=== PATIENT | male | born 1930 | race Caucasian/White ===

== ENCOUNTER 2016-12-28 12:35 | Emergency (ER) | payer MEDICARE, BC ==
[2016-12-28 12:50] VITALS: BP 174/66
--- NOTE | 2016-12-28 13:28 | EDM.PDOC ---
<Indigo Kelly - Last Filed: 12/28/16 13:34> ED HPI Skin/Rash - General Chief Complaint: Flank Pain Stated Complaint: [id number] PAIN UNDER RIGHT SIDE Time Seen by Provider: 12/28/16 13:23 Source: Reports: Patient History Limitations: Reports: No limitations - History of Present Illness INITIAL COMMENTS - FREE TEXT/NARRATIVE: Patient presents to the ER with c/o pain in the right front rib cage area wrapping around to the back shoulder blade area. He states this began last night. He states his right hip was painful 2 nights ago. Patient states he has never had shingles before, and he was vaccinated for shingles 3 years ago. He denies fall or injury. He denies chest pain or sob. Symptom Onset Date: 12/27/16 Timing: Reports: worse Location, Skin: Reports: chest, abdomen Front/Back Body Image: 1 - Beginning red rash 2 - Beginning red rash Quality: Reports: Burning, Sharp Severity: severe Known Identified Source: no Sick Contact: no Associated Symptoms: Reports: no other symptoms Similar Symptoms Previously: no Recent Medical Care: no - Related Data Allergies Allergy/AdvReac Type Severity Reaction Status Date / Time calcium Allergy unknown Verified 10/12/13 14:55 colesevelam [Colesevelam] Allergy unknown Verified 10/12/13 14:57 procaine HCl [From Novocain] Allergy unknown Verified 10/12/13 14:58 simvastatin Allergy unknown Verified 10/12/13 14:58 Home Meds: Ambulatory Orders Medication Instructions Recorded Confirmed Aspirin [Essie Chewable] 81 mg PO DAILY 05/06/14 12/28/16 Ca Carbonate/Vitamin D3/Vit K 1 tab PO DAILY 05/06/14 12/28/16 [Calcium + D Soft Chewable Tab] Famotidine [Pepcid AC] 20 mg PO DAILY 05/06/14 12/28/16 Finasteride [Finasteride] 5 mg PO BEDTIME 05/06/14 12/28/16 Glucosamine [Glucosamine Sulfate] 500 mg PO DAILY 05/06/14 12/28/16 Metoprolol Succinate [Toprol XL 25 mg PO BID 05/06/14 12/28/16 50mg] Multivitamin [Multivitamins] 1 each PO DAILY 05/06/14 12/28/16 Rosuvastatin Calcium [Crestor] 10 mg PO DAILY 05/06/14 12/28/16 Past Medical History HEENT History: Reports: Hard of hearing Other HEENT History: has reading glasses Cardiovascular History: Reports: [place], Stents Respiratory History: Reports: None Gastrointestinal History: Reports: GERD Musculoskeletal History: Reports: Arthritis Neurological History: Reports: None Psychiatric History: Reports: None Endocrine/Metabolic History: Reports: None Hematologic History: Reports: None Immunologic History: Reports: None Oncologic (Cancer) History: Reports: Renal Dermatologic History: Reports: None - Infectious Disease History Infectious Disease History: Reports: Chicken pox, Measles, Mumps - Past Surgical History Head Surgeries/Procedures: Reports: None Male Surgical History: Reports: Nephrectomy Other Male Surgeries/Procedures: left Social & Family History - Tobacco Use Smoking Status *Q: Never Smoker Second Hand Smoke Exposure: No - Caffeine Use Caffeine Use: Reports: Soda - Alcohol Use Days Per Week of Alcohol Use: 0 - Recreational Drug Use Recreational Drug Use: No - Living Situation & Occupation Living situation: Reports: , with family Occupation: retired ED ROS GENERAL - Review of Systems Review Of Systems: ROS reveals no pertinent complaints other than HPI. ED EXAM, SKIN/RASH Exam: See Below Exam Limited By: No limitations General Appearance: alert, WD/WN, no apparent distress Eye Exam: bilateral eye: normal inspection Ears: normal external exam, normal canal, hearing grossly normal, normal TMs Nose: normal inspection, normal mucosa, no blood Throat/Mouth: Normal inspection, Normal lips, Normal teeth, Normal gums, Normal oropharynx, Normal voice, No airway compromise Head: atraumatic, normocephalic Neck: normal inspection, supple, non-tender, full range of motion Respiratory/Chest: no respiratory distress, lungs clear, normal breath sounds, no accessory muscle use, chest non-tender Cardiovascular: normal peripheral pulses, regular rate, rhythm, no edema, no gallop, no JVD, no murmur, no rub Peripheral Pulses: 2+: radial (L), radial (R) GI/Abdominal: normal bowel sounds, soft, non tender, no organomegaly, no distention, no abnormal bruit, no mass (Male) Exam: Deferred Rectal (Males) Exam: Deferred Back Exam: normal inspection, full range of motion. No: CVA tenderness (L), CVA tenderness (R) Extremities: normal inspection, normal range of motion, non-tender, no pedal edema, normal capillary refill Neurological: alert, oriented, CN II-XII intact, normal cognition, normal gait, normal reflexes, no motor/sensory deficits Psychiatric: normal affect, normal mood Skin: Warm, Dry, Intact, Normal color, Rash (Red non raised rash wrapping from the rib area of the chest around to the back below the shouler blade. ) Location, Skin: chest, back Characteristics: fine, patchy Lymphatic: no adenopathy Course - Vital Signs Last Recorded V/S: Last Vital Signs Temp 36.1 C 12/28/16 12:44 Pulse 74 12/28/16 12:44 Resp 16 12/28/16 12:44 BP 174/66 H 12/28/16 12:44 Pulse Ox 98 12/28/16 12:44 - Orders/Labs/Meds Labs: Laboratory Tests 12/28/16 Range/Units 13:00 Urine Color Yellow (YELLOW) Urine Appearance Slightly cloudy (CLEAR) Urine pH 7.5 (5.0-9.0) Ur Specific [place] 1.020 (1.005-1.030) Urine Protein 30 H (NEGATIVE) Urine Glucose (UA) 500 H (NEGATIVE) Urine Ketones Negative (NEGATIVE) Urine Occult Blood Negative (NEGATIVE) Urine Nitrite Negative (NEGATIVE) Urine Bilirubin Negative (NEGATIVE) Urine Urobilinogen 0.2 (0.2-1.0) mg/dL Ur Leukocyte Esterase Negative (NEGATIVE) Urine RBC 0-5 /HPF Urine WBC Not seen (0-5/HPF) /HPF Ur Epithelial Cells Rare /HPF Amorphous Sediment Moderate (0/HPF) /HPF Urine Bacteria Rare (0-FEW/HPF) /HPF Urine Mucus Few H /LPF Departure - Departure Time of Disposition: 13:30 Disposition: Home, Self-Care 01 Condition: good Clinical Impression: Herpes zoster Qualifiers: Herpes zoster complications: without complications Qualified Code(s): B02.9 - Zoster without complications Instructions: Shingles, [id number] Forms: ED Department Discharge Additional Instructions: Drink plenty of fluids. Eat lots of fruits and vegetables. Take stool softeners as pain medication can cause constipation. Galt 325/5m pill every 4-6 hours as needed for pain. Valtrex 1000m pill three times daily for 7 days. Prednisone 40mg daily with a meal for 5 days. FOllow up with your primary care provider next week. <Ronny Goode - Last Filed: 12/28/16 13:37> Course - Re-Assessments/Exams Free Text/Narrative Re-Assessment/Exam: 12/28/16 13:37 FOR THIS ENCOUNTER THE PATIENT WAS SEEN IN CONJUNCTION WITH [facility] STUDENT INDIGO KELLY. ALL PATIENT CARE AND/OR PROCEDURE(S), DIAGNOSTIC ORDERS, MEDICATION(S) AND TREATMENT ORDERS, DISPOSITION ORDERS/PLANNING, AND DISCHARGE/FOLLOW UP INSTRUCTIONS WERE UNDER MY DIRECT SUPERVISION. arielle
== END 2016-12-28 13:49 | disposition home or self-care (01) ==
LOC: DL.ED 12:35
DX: B02.9 Zoster without complications (principal); K21.9 Gastro-esophageal reflux disease without esophagitis; M19.90 Unspecified osteoarthritis, unspecified site; Z88.8 Allergy status to other drugs, medicaments and biological substances; Z79.82 Long term (current) use of aspirin
CPT/HCPCS: 81001; 99283

== ENCOUNTER 2019-07-24 11:13 | Emergency (ER) | payer MEDICARE, BC ==
[2019-07-24 11:26] VITALS: BP 155/61; PULSE 79
--- NOTE | 2019-07-24 13:08 | EDM.PDOC ---
Scribed by Megan Gilbert 07/24/19 1207 for Indigo Kelly NP ED HPI GENERAL MEDICAL PROBLEM - General Chief Complaint: Genitourinary Problem Stated Complaint: PROSTATE ISSUES, HIGH BP Time Seen by Provider: 07/24/19 11:33 Source of Information: Reports: Patient, RN, RN Notes Reviewed History Limitations: Reports: No Limitations - History of Present Illness INITIAL COMMENTS - FREE TEXT/NARRATIVE: Patient presented to ER with complaint of having to pass urine frequently. States the urine smells foul and faria with urination. Began yesterday. States streak of bright red blood with stool this morning. States stool somewhat hard-- but stool was brown. "Blood on the outside.) Admits to pain in prostate area. No fever, chills, nausea, vomiting or diarrhea. Denies back pain. 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 Onset: Gradual Duration: Constant Quality: Reports: Burning Severity: Moderate Improves with: Reports: None Worsens with: Reports: None Associated Symptoms: Reports: No Other Symptoms - Related Data Allergies Allergy/AdvReac Type Severity Reaction Status Date / Time aspirin Allergy Stomach Verified 07/24/19 11:29 Upset calcium Allergy unknown Verified 07/24/19 11:28 ciprofloxacin Allergy Diarrhea Verified 07/24/19 11:28 colesevelam [Colesevelam] Allergy unknown Verified 07/24/19 11:28 omeprazole Allergy Dizziness Verified 07/24/19 11:28 procaine HCl [From Novocain] Allergy unknown Verified 07/24/19 11:28 simvastatin Allergy unknown Verified 07/24/19 11:28 Sulfa (Sulfonamide Allergy Rash Verified 07/24/19 11:28 Antibiotics) Home Meds: Home Meds Aspirin [Essie Chewable] 81 mg PO DAILY 05/06/14 [History] Ca Carbonate/Vitamin D3/Vit K [Calcium + D Soft Chewable Tab] 1 tab PO DAILY 09/09 [History] Famotidine [Pepcid AC] 20 mg PO DAILY PRN 05/06/14 [History] Finasteride 5 mg PO BEDTIME 05/06/14 [History] Glucosamine [Glucosamine Sulfate] 500 mg PO DAILY 05/06/14 [History] Metoprolol Succinate [Toprol XL 50mg] 25 mg PO BID 05/06/14 [History] Multivitamin [Multivitamins] 1 each PO DAILY 05/06/14 [History] Rosuvastatin Calcium [Crestor] 10 mg PO DAILY 05/06/14 [History] Clopidogrel [Plavix] 75 mg PO DAILY 07/24/19 [History] Magnesium 400 mg PO DAILY 07/24/19 [History] Pantoprazole Sodium [Protonix] 40 mg PO DAILY 07/24/19 [History] Warfarin [Coumadin] 5 mg PO DAILY 07/24/19 [History] Past Medical History HEENT History: Reports: Hard of Hearing Other HEENT History: has reading glasses Cardiovascular History: Reports: [place], Stents Respiratory History: Reports: None Gastrointestinal History: Reports: GERD Musculoskeletal History: Reports: Arthritis Neurological History: Reports: None Psychiatric History: Reports: None Endocrine/Metabolic History: Reports: None Hematologic History: Reports: None Immunologic History: Reports: None Oncologic (Cancer) History: Reports: Renal Dermatologic History: Reports: None - Infectious Disease History Infectious Disease History: Reports: Chicken Pox, Measles, Mumps - Past Surgical History Head Surgeries/Procedures: Reports: None Male Surgical History: Reports: Nephrectomy Other Male Surgeries/Procedures: left Social & Family History - Caffeine Use Caffeine Use: Reports: Soda - Living Situation & Occupation Living situation: Reports: , with Family Occupation: Retired ED ROS GENERAL - Review of Systems Review Of Systems: ROS reveals no pertinent complaints other than HPI. ED EXAM, RENAL/ - Physical Exam Exam: See Below Exam Limited By: No Limitations General Appearance: Alert, WD/WN, No Apparent Distress Eye Exam: Bilateral Eye: EOMI, Normal Inspection, PERRL Ears: Other (hard of hearing) Nose: Normal Inspection, Normal Mucosa, No Blood Throat/Mouth: Normal Inspection, Normal Lips, Normal Teeth, Normal Gums, Normal Oropharynx, Normal Voice, No Airway Compromise Head: Atraumatic, Normocephalic Neck: Normal Inspection, Supple, Non-Tender, Full Range of Motion Respiratory/Chest: Lungs Clear (but diminished) Cardiovascular: Regular Rate, Rhythm (but distant) GI/Abdominal: Normal Bowel Sounds, Soft, Non-Tender, No Organomegaly, No Distention, No Abnormal Bruit, No Mass (Male) Exam: Deferred Rectal (Males) Exam: Deferred Back Exam: Other (No CVA pain) Extremities: Other (decreased range of motion) Neurological: Alert, Oriented, CN II-XII Intact, Normal Cognition, Normal Gait, Normal Reflexes, No Motor/Sensory Deficits Psychiatric: Anxious Skin Exam: Warm, Dry, Intact, Normal Color, No Rash Lymphatic: No Adenopathy Course - Vital Signs Last Recorded V/S: Last Vital Signs Temp 98.5 F 07/24/19 11:21 Pulse 79 07/24/19 11:21 Resp 16 07/24/19 11:21 BP 155/61 H 07/24/19 11:21 Pulse Ox 99 07/24/19 11:21 - Orders/Labs/Meds Orders: Active Orders 24 hr Category Date Time Status CULTURE URINE [RM] Routine Lab 07/24/19 11:19 Received Labs: Laboratory Tests 07/24/19 Range/Units 11:19 Urine Color Yellow (YELLOW) Urine Appearance Cloudy (CLEAR) Urine pH 6.5 (5.0-9.0) Ur Specific [place] 1.025 (1.005-1.030) Urine Protein 30 H (NEGATIVE) Urine Glucose (UA) Negative (NEGATIVE) Urine Ketones Negative (NEGATIVE) Urine Occult Blood Moderate H (NEGATIVE) Urine Nitrite Positive H (NEGATIVE) Urine Bilirubin Negative (NEGATIVE) Urine Urobilinogen 0.2 (0.2-1.0) mg/dL Ur Leukocyte Esterase Moderate H (NEGATIVE) Urine RBC 10-20 H /HPF Urine WBC >100 H (0-5/HPF) /HPF Ur Epithelial Cells Rare (NOT SEEN) /HPF Amorphous Sediment Few (NOT SEEN) /HPF Urine Bacteria Many H (0-FEW/HPF) /HPF Urine Mucus Not seen (NOT SEEN) /LPF Departure - Departure Time of Disposition: 12:06 Disposition: Home, Self-Care 01 Condition: Fair Clinical Impression: UTI, Urinary tract infectious disease Prostatitis Qualifiers: Prostatitis type: unspecified Qualified Code(s): N41.9 - Inflammatory disease of prostate, unspecified - Discharge Information *PRESCRIPTION DRUG MONITORING PROGRAM REVIEWED*: No *COPY OF PRESCRIPTION DRUG MONITORING REPORT IN PATIENT VASHTI: No Instructions: Urinary Tract Infection, Adult, [id number], Prostatitis, Easy- to-Read Forms: ED Department Discharge Additional Instructions: RX: Cefuroxime Drink plenty of water Follow up with your primary care facility - My Orders Last 24 Hours: My Active Orders 07/24/19 11:19 CULTURE URINE [RM] Routine - Assessment/Plan Last 24 Hours: My Active Orders 07/24/19 11:19 CULTURE URINE [RM] Routine I have read and agree with the documentation that has been completed regarding this visit. By signing this record, I attest that the documentation was completed in my physical presence and is an accurate record of the encounter.
== END 2019-07-24 12:16 | disposition home or self-care (01) ==
LOC: DL.ED 11:13
DX: N41.9 Inflammatory disease of prostate, unspecified (principal); N39.0 Urinary tract infection, site not specified; I25.2 Old myocardial infarction; Z88.2 Allergy status to sulfonamides; Z88.8 Allergy status to other drugs, medicaments and biological substances; Z79.82 Long term (current) use of aspirin; Z79.01 Long term (current) use of anticoagulants; Z95.5 Presence of coronary angioplasty implant and graft; Z88.6 Allergy status to analgesic agent; Z88.1 Allergy status to other antibiotic agents
CPT/HCPCS: 81001; 87086; 87088; 87186; 99283